=== PATIENT | male | born 2005 | race Caucasian/White ===

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

== ENCOUNTER → 2025-02-03 | Outpatient (CLI) | payer OTHER, SELFPAY ==
--- NOTE | 2025-02-03 14:00 | LES_PTH ---
PATIENT: KANCHAN COTTER LOC: [facility] U#:[id number] AGE/SX: 19/M ROOM: RE02/03/[address]: Dr. Dylan James MD : 2005 BED: DIS: 02/03/2025 SPEC #: [id number] RECD: 02/03/25 16:13 STATUS: ALONZO REKulwinder #: [id number] CRYSTAL: 02/03/25 14:[address]: Dylan James DEPT: SURGICAL PATHOLOGY RECD BY: Kanchan Frank ENTERED: 02/04/25 10:22 SP TYPE: Lesion OTHR DR: Dr. Oxana Schmidt MD Tissues: A - Skin of foot, NOS Procedures: Surgery Specimen Level IV HEADER OPERATION: Excision right foot lesion PRE-OP DIAGNOSIS: Right foot lesion TISSUE SUBMITTED: A- Right foot lesion MICROSCOPIC DIAGNOSIS A. Skin, right foot, lesion, excision: - Fibrokeratoma, benign. MICROSCOPIC DESCRIPTION Slides are reviewed. GROSS DESCRIPTION A. Received in formalin labeled with the patient's name and date of . Designated as right foot lesion is a 0.5 x 0.4 x 0.2 cm iraheta elliptical portion of skin devoid of orientation. The resection margin is inked green. Centrally on the epidermal surface is a 0.6 x 0.5 x 0.2 cm iraheta-white raised, well-circumscribed, firm lesion grossly abutting and extending over the peripheral edges. The specimen is bisected and entirely submitted in 1 cassette. AL [id number]
== END | disposition home or self-care (01) ==
LOC: LABSPEC 16:15
PROVIDERS: PCP Pediatrics; Referring Provider Surgery Plastic and Reconstructive Surgery; Visit Provider Surgery Plastic and Reconstructive Surgery
DX: L98.9 Disorder of the skin and subcutaneous tissue, unspecified (principal)
CPT/HCPCS: 88305